=== PATIENT | male | born 1985 | race Caucasian/White ===

== ENCOUNTER 2021-09-05 07:00 | Day surgery (SDC) | payer OTHER ==
[~2021-09-05] VITALS: Ht 185.4 cm; Wt 105.0 kg
[2021-09-05] VITALS (9 sets, daily range): BP systolic 99–190; BP diastolic 68–126
--- NOTE | 2021-09-05 07:30 | NUR ---
PATIENT AMBULATORY TO ROOM WITH STEADY GAIT. CONSENTS OBTAINED. VITALS OBTAINED. DR QUEVEDO NOTIFIED. NEW ORDERS RECEIVED. ADMISSION ASSESSMENT COMPLETED AT THIS TIME. IV ESTABLISHED. ORIENTED PATIENT TO ROOM AND UNIT. CALL LIGHT IN REACH. WILL CONTINUE TO MONITOR.
[2021-09-05 08:24] LABS: HEMATOCRIT 45.3 % (39.0-50.0); HEMOGLOBIN 14.7 g/dl (14.0-18.0); IMMATURE GRANULOCYTES 0.8 % (0.0-5.0); MEAN CELL VOLUME 88.5 fL CALC (80.0-100.0); MEAN CORPUSCULAR HGB 28.7 pG CALC (26.0-32.0); MEAN CORPUSCULAR HGB CONC 32.5 g/dL CAL (32.0-36.0); NEUT# 11.32 thou/uL (1.82-7.42); RED BLOOD COUNT 5.12 mill/uL (4.70-6.10); RED CELL DISTRI WIDTH 12.6 % (11.5-15.5)
[2021-09-05 08:45] LABS: ALBUMIN 4.6 g/dL (3.2-5.0); ALKALINE PHOSPHATASE 104 u/l (38-126); ANION GAP 17 (6-22 (CALC)); BILIRUBIN, TOTAL 0.6 mg/dL (0.0-1.4); BUN 14 mg/dL (9-20); BUN/CREATININE RATIO 16 (12-20 (CALC)); CARBON DIOXIDE 26 mmol/l (22-30); CHLORIDE 98 mmol/l (95-108); CREATININE 0.9 mg/dL (0.7-1.3); GFR > 60 ML/MIN (>=60 (CALC)); GFR FOR AFR.AMER. > 60 ML/MIN (>=60 (CALC)); POTASSIUM 3.9 mmol/l (3.5-5.1); SGOT/AST 33 u/l (17-59); SODIUM 138 mmol/l (137-146); TOTAL PROTEIN 8.3 g/dL (6.3-8.2)
[2021-09-05] MEDS ORDERED: KLONOPIN0.5 MG PO (10:27)
[2021-09-05] MEDS ORDERED: CLONIDINE0.1 MG PO (10:27)
--- NOTE | 2021-09-05 19:27 | NUR ---
PT RESTLESS IN BED, NO SIGNS OF DISTRESS NOTED, RESP EVEN AND UNLABORED. PT ALERT TO SELF AND PLACE. BED ALARM FOR SAFETY, PT ON 02 2L NC, YELLING OUT IN BED, PT MEDICATED WITH IV ATIVAN, VITALS OBTAINED, ASSESSMENT REVIEW COMPLETED, CALL LIGHT IN REACH,CONTINUE TO MONITOR.
--- NOTE | 2021-09-05 23:15 | NUR ---
PT IN BED, NO SIGNS OF DISTRESS NOTED, RESP EVEN AND UNLABORED. PT MEDICATED PER MAR, PT STATES HE IS COLD, WARM BLANKETS APPLIED. CALL LIGHT IN REACH,CONTINUE TO MONITOR.
[2021-09-06 04:00] VITALS: BP 148/96
--- NOTE | 2021-09-06 04:00 | NUR ---
PT RESTING IN BED, NOT EASILY AROUSED TO VERBAL STIMULI, PT MEDICATED PER MAR. NO SIGNS OF DISTRESS NOTED, RESP EVEN AND UNLABORED. NOTED EPISODES OF APNEA, 02 2L NC INCREASED TO 3L NC, PT SATS 98%. CALL LIGHT IN REACH, BED ALARM IN PLACE, CONTINUE TO MONITOR.
[2021-09-06 05:16] LABS: HEMATOCRIT 42.3 % (39.0-50.0); HEMOGLOBIN 14.1 g/dl (14.0-18.0); IMMATURE GRANULOCYTES 0.9 % (0.0-5.0); MEAN CORPUSCULAR HGB CONC 33.3 g/dL CAL (32.0-36.0); NEUT# 15.3 thou/uL (1.82-7.42); RED BLOOD COUNT 4.86 mill/uL (4.70-6.10); RED CELL DISTRI WIDTH 12.8 % (11.5-15.5)
[2021-09-06 05:34] LABS: ALBUMIN 4.2 g/dL (3.2-5.0); ALKALINE PHOSPHATASE 89 u/l (38-126); ANION GAP 18 (6-22 (CALC)); BILIRUBIN, TOTAL 0.5 mg/dL (0.0-1.4); BUN 11 mg/dL (9-20); BUN/CREATININE RATIO 15 (12-20 (CALC)); CARBON DIOXIDE 23 mmol/l (22-30); CHLORIDE 105 mmol/l (95-108); CREATININE 0.8 mg/dL (0.7-1.3); GFR > 60 ML/MIN (>=60 (CALC)); GFR FOR AFR.AMER. > 60 ML/MIN (>=60 (CALC)); MAGNESIUM 2.4 mg/dL (1.6-2.3); SGOT/AST 27 u/l (17-59); SODIUM 141 mmol/l (137-146); TOTAL PROTEIN 7.5 g/dL (6.3-8.2)
--- NOTE | 2021-09-06 07:00 | NUR ---
REPORT RECEIVED FROM CADEN NOLEN. PATIENT IS SLEEPING ON HIS LEFT SIDE ON BED WITH NO DISTRESS NOTED. BED ALARM IN PLACE.
[2021-09-06 09:30] VITALS: BP 143/88
--- NOTE | 2021-09-06 09:30 | NUR ---
ASSESSMENT DONE. PATIENT IS ALERT TO SELF BUT DROWSY. PATIENT ABLE TO OPEN EYES AND SAY HIS NAME. PATIENT TOOK A FEW SIPS OF APPLE JUICE. O2 AT 3L VIA NC AND SATS 97% PATIENT WENT BACK TO SLEEP. BED ALARM IN PLACE.
--- NOTE | 2021-09-06 10:44 | NUR ---
PATIENT SET OFF THE BED ALARM. PATIENT SITTING IN THE SIDE OF THE BED. PATIENT STATED HE NEEDS TO GO TO THE BATHROOM AND HAVE A BM. PATIENT UNSTEADY IN HIS FEET AND I ASSSITED HIM TO THE BATHROOM . MARKETING SERVICES MANAGER IN ROOM TO CHANGE HIS BED.
[2021-09-06 12:10] VITALS: BP 159/93
--- NOTE | 2021-09-06 12:28 | NUR ---
PATIENT MORE ALERT BUT STILL DROWSY. PATIENT REQUESTING MEDICATION BECAUSE HE FEELS RESTLESS. PATIENT REFUSED HIS LUNCH. PATIENT TOOK A FEW SIPS OF WATER. BED ALARM IN PLACE.
--- NOTE | 2021-09-06 14:19 | NUR ---
PER DR. QUEVEDO HOLD ALL MEDICATIONS DUE TO PATIENT IS DROWSY.
--- NOTE | 2021-09-06 15:12 | NUR ---
DNA ANALYST ASSISTED PATIENT IN THE SHOWER. THEN BACK TO BED. PATIENT STATED HE IS COLD. PROVIDED PATIENT WITH A WARM BLANKET. PATIENT TOOK A FEW SIPS OF WATER. O2 OFF PATIENT DENIES SOB. PATIENT DENIES ANY OTHER NEEDS. CALL LIGHT IN REACH AND BED ALARM IN PLACE.
[2021-09-06 15:39] VITALS: BP 143/77
--- NOTE | 2021-09-06 15:58 | NUR ---
ASSISTED PATIENT TO THE RECLINER. PATIENT IS LESS DROWSY. PATIENT REFUSING TO EAT. PROVIDED PATIENT WITH WATER AND JUICE. PATIENT TOOK A FEW SIPS OF JUICE. CALL LIGHT IN REACH.
--- NOTE | 2021-09-06 17:05 | NUR ---
Discharge instructions given. Patient verbalizes understanding of same. Discharged in stable condition via Wheelchair to Home with [facility] staff. All belongings sent with pt.
== END 2021-09-06 18:26 | disposition home or self-care (01) | DRG 897 ==
LOC: MS2 07:00 → ANR 07:00
PROVIDERS: ATTEND Anesthesiology
DX: F11.20 Opioid dependence, uncomplicated (principal)
CPT/HCPCS: J2060; J2354